=== PATIENT | female | born 1945 ===

== ENCOUNTER 2022-01-01 12:28 | Day surgery (SDC) | payer OTHER ==
[~2022-01-01 12:28] MED LIST: CRESTOR5 MG PO; JANUVIA100 MG PO; TELMISARTAN-HC1 EAC2 PO; TOPROL XL25 M1 PO; TRAMADOL HCL-AP1 TAB PO
== END 2022-01-01 20:15 | disposition home or self-care (01) ==
LOC: CIR.AMB 12:28
PROVIDERS: ATTEND Surgery Surgery of the Hand
DX: M65.841 Other synovitis and tenosynovitis, right hand (principal); Z20.822 Contact with and (suspected) exposure to COVID-19; Z88.8 Allergy status to other drugs, medicaments and biological substances; Z88.6 Allergy status to analgesic agent; Z88.0 Allergy status to penicillin; I10 Essential (primary) hypertension; E11.9 Type 2 diabetes mellitus without complications

== ENCOUNTER 2022-11-25 05:08 | Day surgery (SDC) | payer OTHER | END 2022-11-25 12:50 | disposition home or self-care (01) | LOC: CIR.AMB 05:08 | PROVIDERS: ATTEND Surgery Surgery of the Hand | DX: M65.842 Other synovitis and tenosynovitis, left hand (principal); Z88.8 Allergy status to other drugs, medicaments and biological substances; Z20.822 Contact with and (suspected) exposure to COVID-19; I10 Essential (primary) hypertension ==